=== PATIENT | female | born 1985 | race African-American/Black ===

== ENCOUNTER 2018-05-21 15:55 | Emergency (ER) | payer OTHER ==
[2018-05-21 16:14] VITALS: TEMP 98.6; BMI 32.1
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
[2018-05-21] MEDS ORDERED: ACETAMINOPHEN 325 MG TABLET (FP) ONE (17:24)
[2018-05-21] MEDS ORDERED: ACETAMINOPHEN 325 MG TABLET (FP) PO ONE (17:28)
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
[2018-05-21 18:33] VITALS: BP 132/79; PULSE 94
== END 2018-05-21 19:35 | disposition left against medical advice (07) ==
LOC: JERFT 15:55 → JER 15:55
DX: O26.893 Other specified pregnancy related conditions, third trimester (principal); S29.8XXA Other specified injuries of thorax, initial encounter; M94.0 Chondrocostal junction syndrome [Tietze]; Y04.2XXA Assault by strike against or bumped into by another person, initial encounter; Y93.89 Activity, other specified; Y92.128 Other place in nursing home as the place of occurrence of the external cause; Y99.0 Civilian activity done for income or pay; Y07.9 Unspecified perpetrator of maltreatment and neglect; Z3A.37 37 weeks gestation of pregnancy
CPT/HCPCS: 99281-25

== ENCOUNTER 2018-06-16 21:33 | Inpatient (IN) | payer OTHER ==
[2018-06-16] MEDS ORDERED: BUTORPHANOL TARTRATE 1 MG/ML VIAL IVPB ONE (22:23)
[2018-06-16] MEDS ORDERED: PROMETHAZINE HCL 25 MG/1 ML VIAL IVPUSH ONE (22:23)
[2018-06-16] MEDS ORDERED: DINOPROSTONE 10 MG VAGINAL SUPPOSITORY VG ONE (22:26)
[2018-06-16] MEDS ORDERED: ELECTROLYTE-148 SOLN 1,000 ML IV SCH (22:30)
[2018-06-16 23:18] LABS: BASO % 0.4 % (0-2.0); EOS % 1.8 % (0-4.5); HEMATOCRIT 38.3 % (32.4-45.2); HEMOGLOBIN 12.6 GM/dL (10.7-15.3); LYMPH % 25.3 % (8-40); MCH 28.5 pg (25.7-33.7); MCHC 33.1 g/dl (32.0-36.0); MEAN CELL VOLUME 86.1 fl (80-96); MEAN PLT VOLUME 10.7 fl (7.5-11.1); MONO % 11.2 % (3.8-10.2); NEUT % 61.3 % (42.8-82.8); PLATELET COUNT 230 K/MM3 (134-434); RBC 4.44 M/mm3 (3.60-5.2); RDW 16.3 % (11.6-15.6); WHITE BLOOD COUNT 8.7 K/mm3 (4.0-10.0)
[2018-06-16 23:31] LABS: INR 0.93 (0.83-1.09)
[2018-06-16 23:38] LABS: ANION GAP 9 MMOL/L (8-16); BLOOD UREA NITROGEN 10 mg/dL (7-18); CALCIUM 8.6 mg/dL (8.5-10.1); CHLORIDE 106 mmol/L (98-107); CO2 22 mmol/L (21-32); CREATININE 0.5 mg/dL (0.55-1.3); GLUCOSE,RANDOM 106 mg/dL (74-106); POTASSIUM 4.1 mmol/L (3.5-5.1); SODIUM 136 mmol/L (136-145)
[2018-06-16 23:39] VITALS: BMI 32.7
[2018-06-17] MEDS ORDERED: PROMETHAZINE HCL 25 MG/1 ML VIAL ONE (02:49)
[2018-06-17] MEDS ORDERED: BUTORPHANOL TARTRATE 1 MG/ML VIAL ONE ×2 (02:49)
[2018-06-17] MEDS ORDERED: FENTANYL/BUPIVACAINE/NS/PF - PCEA - 50 ML DISP.SYRIN EP ONE (05:05)
[2018-06-17] MEDS ORDERED: OXYTOCIN 20 UNITS in 0.9% NS 20 UNIT/1,000 ML INFUS.BAG IV ONE (05:23)
[2018-06-17] MEDS ORDERED: NALOXONE HCL 0.4 MG/ML VIAL IVPUSH PRN (06:02)
[2018-06-17] MEDS ORDERED: FENTANYL/BUPIVACAINE/NS/PF - PCEA - 50 ML DISP.SYRIN EP SCH (06:15)
--- NOTE | 2018-06-17 07:46 | HP ---
Past Medical History - Admission Chief Complaint: Here for labor induction History of Present Illness: 33 y/o with SIUP at 41.4 weeks, labor induction for late term. complicated by AMA otherwise uncomplicated . GBS negative. Pt admitted overnight last night, received cervidil at 10pm, is now s/p SROM and epidural. FHTs were category 2 with recurrent variables after epidural, now improved. History Source: Patient, Medical Record - Past Medical History Cardiovascular: Yes: HTN (h/o HTN, no meds throughout ) Pulmonary: No: COPD Gastrointestinal: No: GERD Renal/: No: UTI ...: 6 ...Para: 1 ...Term: 1 ...: 0 ...Spon : 1 ...Induced : 3 ...Multiple Gestation: 0 ...LMP: 08/30/17 ... Weeks Gestation by Dates: 41.3 ...EDC by Dates: 06/06/18 ...EDC by Sono: 06/06/18 Heme/Onc: No: Anemia Infectious Disease: No: HIV, MRSA, STD's Psych: No: Anxiety, Bipolar, Depression - Past Surgical History Past Surgical History: Yes: None Hx Myomectomy: No Hx Transabdominal Cerclage: No - Smoking History Smoking history: Never smoked Have you smoked in the past 12 months: No - Alcohol/Substance Use Hx Alcohol Use: No - Social History ADL: Independent History of Recent Travel: No Home Medications - Allergies Allergies/Adverse Reactions: Allergies Allergy/AdvReac Type Severity Reaction Status Date / Time No Known Allergies Allergy Verified 06/17/18 00:46 - Home Medications Home Medications: Ambulatory Orders Vitamins (Sjr) - 1 tab PO DAILY 03/23/18 Spirometers and Accessories [Mistassist] 1 each Q2H #1 each 05/21/18 Review of Systems - Review of Systems Constitutional: reports: No Symptoms Eyes: reports: No Symptoms HENT: reports: No Symptoms Neck: reports: No Symptoms Cardiovascular: reports: No Symptoms Respiratory: reports: No Symptoms Gastrointestinal: reports: No Symptoms Genitourinary: reports: No Symptoms Breasts: reports: No Symptoms Reported Musculoskeletal: reports: No Symptoms Integumentary: reports: No Symptoms Neurological: reports: No Symptoms Endocrine: reports: No Symptoms Hematology/Lymphatic: reports: No Symptoms Physical Exam - Maternity Vital Signs: Vital Signs Temperature 98.6 F 06/17/18 03:00 Pulse Rate 80 06/17/18 07:30 Respiratory Rate 18 06/17/18 07:30 Blood Pressure 121/67 06/17/18 07:30 O2 Sat by Pulse Oximetry (%) 98 06/17/18 07:30 Constitutional: Yes: Well Nourished, No Distress Eyes: Yes: Conjunctiva Clear, EOM Intact HENT: Yes: Atraumatic, Normocephalic Neck: Yes: Supple, Trachea Midline Cardiovascular: Yes: Regular Rate and Rhythm Lungs: Clear to auscultation - Abdominal Exam/OB Fundal Height: 40 Number of Fetuses: Single Presentation: Vertex Contractions: Yes Regularity: Regular Heart Rate (range): 130 Category: II Accelerations: Uniform Decelerations: Variable (nonrecurrent variable decelerations) - Vaginal Exam/OB Vaginal Bleediing: No Dilatation (cm): 6.7 Effacement (%): 100 Amniotic Membrane Status: Ruptured (exam per nursing staff) - Labs Lab Results: CBC, BMP 06/16/18 22:30 06/16/18 22:30 Hemorrhage Risk Assessment - Risk Factors Medium Risk Factors: Yes: None High Risk Factors: Yes: None Risk Score: 1 Risk Level: Medium Risk Problem List - Problems (1) Post-dates Code(s): O48.0 - POST-TERM (2) Advanced maternal age (AMA) in Code(s): [id number] - Assessment/Plan 33 y/o with SIUP at 41.4 weeks, IOL for post dates pt now 6-7cm dilated and head at 0 station cervidil removed continue with epidural infusion gbs negative anticipate
[2018-06-17] MEDS ORDERED: LIDO 2%/EPI 1:200000 PRESRVFRE (20 ML SDVIAL) ONE (08:29)
[2018-06-17] MEDS ORDERED: [UNRECOGNIZED DRUG - OTHER] MC SCH (08:30)
[2018-06-17] MEDS ORDERED: ONDANSETRON 4 MG/2 ML VIAL ONE (08:34)
[2018-06-17] MEDS ORDERED: TUBERCULIN PPD 5 TU/0.1ML SYRINGE (IN PATIENT USE ONLY) ID ONE (10:00)
--- NOTE | 2018-06-17 10:01 | PN ---
Delivery - Delivery Vaginal Delivery: No Problems Section: Primary Type of Anesthesia: Epidural Episiotomy/Laceration: None EBL (cc): 250 Delivery, Single - Stages of Labor Date of Delivery: 06/17/18 Time of Delivery: 09:45 Date Placenta Delivered: 06/17/18 Time Placenta Delivered: 09:48 Placenta: Yes: Spontaneous - Condition of Family Mediator/Log Truck Driver Present: Yes Name: Srini Campos Infant Gender: Female Position: Right, OA - 1 Minute Total Score: 9 5 Minutes Total Score: 9 - [place] Feeding Plan Initial Plan: Elected not to breastfeed exclusively throughout hospitalization Remarks - Remarks Remarks: Uncomplicated from KENYA position across in tact perineum anterior (right) shoudler delivered with ease along with remainder of cord clamped and cut, baby assessed by neonatology staff who was present for the entire delivery, apgars 9/9 placenta delivered in tact, 3VC noted sponge count correct mom stable baby to well baby nursery
[2018-06-17] MEDS ORDERED: BENZOCAINE 28 GM HEMORRHOIDAL OINTMENT TP PRN (10:03)
[2018-06-17] MEDS ORDERED: METHYLERGONOVINE MALEATE 0.2 MG/1 ML AMP IM PRN (10:03)
[2018-06-17] MEDS ORDERED: BENZOCAINE 20% 57 GM BOTTLE TP PRN (10:03)
[2018-06-17] MEDS ORDERED: WITCH HAZEL 50% (TUCKS) 40 PAD/JAR PAD TP PRN (10:03)
[2018-06-17] MEDS ORDERED: BISACODYL 10 MG SUPP.RECT RC PRN (10:03)
[2018-06-17] MEDS: PRENATAL VITAMINS W/ FOLIC ACID TABLET (FP) PO SCH (13:07)
[2018-06-17] MEDS: FERROUS SO4 325 MG TABLET (FP) PO SCH ×2 (13:17→17:00)
[2018-06-17] MEDS: IBUPROFEN 600 MG TABLET (FP) PO PRN (17:00)
[2018-06-17] MEDS: OXYTOCIN 20 UNITS in 0.9% NS 20 UNIT/1,000 ML INFUS.BAG IV SCH (18:05)
[2018-06-18 06:09] LABS: HBsAG SCREEN Negative (Negative)
[2018-06-18] MEDS: ACETAMINOPHEN 325 MG TABLET (FP) PO PRN ×2 (06:39→21:45)
[2018-06-18] MEDS: IBUPROFEN 600 MG TABLET (FP) PO PRN ×2 (06:39→21:44)
[2018-06-18 08:07] LABS: RUBELLA IgG ANTIBODY 2.36 index (Immune >0.99)
[2018-06-18] MEDS: FERROUS SO4 325 MG TABLET (FP) PO SCH ×3 (08:16→17:00)
[2018-06-18 08:21] LABS: BASO % 0.6 % (0-2.0); EOS % 1.4 % (0-4.5); HEMATOCRIT 34.7 % (32.4-45.2); HEMOGLOBIN 11.3 GM/dL (10.7-15.3); LYMPH % 23.7 % (8-40); MCH 28.3 pg (25.7-33.7); MCHC 32.5 g/dl (32.0-36.0); MEAN PLT VOLUME 10.4 fl (7.5-11.1); MONO % 8.2 % (3.8-10.2); NEUT % 66.1 % (42.8-82.8); PLATELET COUNT 183 K/MM3 (134-434); RBC 3.99 M/mm3 (3.60-5.2); RDW 16.6 % (11.6-15.6); WHITE BLOOD COUNT 9.2 K/mm3 (4.0-10.0)
[2018-06-18] MEDS ORDERED: DIPHTH,PERTUSS(ACELL),TET 0.5 ML DISP.SYRIN IM ONE (10:00)
[2018-06-18] MEDS: PRENATAL VITAMINS W/ FOLIC ACID TABLET (FP) PO SCH (10:21)
[2018-06-18] MEDS: OXYTOCIN 20 UNITS in 0.9% NS 20 UNIT/1,000 ML INFUS.BAG IV SCH (10:45)
--- NOTE | 2018-06-18 15:09 | PN ---
Post Progress Note - Subjective Subjective: 33 y/o post day 1 s/p normal , doing well. Pain controlled, tolerating diet, ambulating, voiding, passing flatus. Type of Delivery: Vital Signs: Vital Signs Temperature 98.0 F 06/18/18 10:00 Pulse Rate 87 06/18/18 10:00 Respiratory Rate 18 06/18/18 10:00 Blood Pressure 121/84 06/18/18 10:00 O2 Sat by Pulse Oximetry (%) 100 06/17/18 20:54 Uterus: Yes: Fundus Firm Abdomen/GI: Yes: Abdomen soft Lochia: Yes: Rubra Lochia, amount: Small Extremities: No: Edema Perineum: Yes: Intact Activity: Ambulating - Labs Labs: CBC WBC 9.2 K/mm3 (4.0-10.0) 06/18/18 07:05 RBC 3.99 M/mm3 (3.60-5.2) 06/18/18 07:05 Hgb 11.3 GM/dL (10.7-15.3) 06/18/18 07:05 Hct 34.7 % (32.4-45.2) 06/18/18 07:05 MCV 87.0 fl (80-96) 06/18/18 07:05 MCH 28.3 pg (25.7-33.7) 06/18/18 07:05 MCHC 32.5 g/dl (32.0-36.0) 06/18/18 07:05 RDW 16.6 % (11.6-15.6) H 06/18/18 07:05 Plt Count 183 K/MM3 (134-434) D 06/18/18 07:05 MPV 10.4 fl (7.5-11.1) 06/18/18 07:05 Absolute Neuts (auto) 6.1 K/mm3 (1.5-8.0) 06/18/18 07:05 Neutrophils % 66.1 % (42.8-82.8) 06/18/18 07:05 Lymphocytes % 23.7 % (8-40) 06/18/18 07:05 Monocytes % 8.2 % (3.8-10.2) 06/18/18 07:05 Eosinophils % 1.4 % (0-4.5) 06/18/18 07:05 Basophils % 0.6 % (0-2.0) 06/18/18 07:05 Nucleated RBC % 0 % (0-0) 06/18/18 07:05 Problem List - Problems (1) Post-dates Code(s): O48.0 - POST-TERM (2) Advanced maternal age (AMA) in Code(s): [id number] - (3) Vaginal delivery Code(s): O80 - ENCOUNTER FOR FULL-TERM UNCOMPLICATED DELIVERY Assessment/Plan 33 y/o PPD#1 s/p normal AFVSS Regular diet PO pain meds routine care discharge home in a.m.
--- NOTE | 2018-06-18 15:12 | DS ---
Physical Exam-AGRICULTURAL TECHNICIAN Vital Signs: Vital Signs Temperature 98.0 F 06/18/18 10:00 Pulse Rate 87 06/18/18 10:00 Respiratory Rate 18 06/18/18 10:00 Blood Pressure 121/84 06/18/18 10:00 O2 Sat by Pulse Oximetry (%) 100 06/17/18 20:54 Constitutional: Yes: Well Nourished, No Distress, Calm HENT: Yes: Atraumatic Cardiovascular: Yes: Regular Rate and Rhythm Respiratory: Yes: WNL Gastrointestinal: Yes: Normal Bowel Sounds ....Post : Yes: Uterus firm, Uterus non-tender Neurological: Yes: Alert, Oriented Psychiatric: Yes: Alert, Oriented Labs: CBC, BMP 06/18/18 07:05 06/16/18 22:30 Delivery - Delivery Vaginal Delivery: No Problems Section: Primary Type of Anesthesia: Epidural Episiotomy/Laceration: None EBL (cc): 250 Delivery, Single - Stages of Labor Date 1st Stage Initiatied: 06/17/18 Time 1st Stage Initiated: 01:00 Date 2nd Stage Initiated: 06/17/18 Time 2nd Stage Initiated: 09:30 Date of Delivery: 06/17/18 Time of Delivery: 09:45 Time Placenta Delivered: 09:48 Placenta: Yes: Spontaneous - Condition of Lumber Carrier Operator/Fruit Or Nut Crops Farm Manager Present: Yes Name: Srini Campos Infant Gender: Female Weight: 7 lb Position: Right, OA Total Hours ROM (Hrs/Mins): 4H48M - 1 Minute Total Score: 9 5 Minutes Total Score: 9 - [place] Feeding Plan Initial Plan: Elected not to breastfeed exclusively throughout hospitalization Discharge Summary Reason For Visit: INDUCTION OF LABOR Current Active Problems Advanced maternal age (AMA) in (Acute) Post-dates (Acute) Vaginal delivery (Acute) Procedures: Principal: NormaL Hospital Course: Pt admitted in 06/16 for induction, cervidil placed that evening. Pt progressed in labor throughout the night, SROM and had epidural early a.m. . Pt underwent normal on 06/17/18 of live female . Pt had uncomplicated post course and was discharged home on post day 2. Condition: Good - Instructions Diet, Activity, Other Instructions: Physical activity Resume your normal everyday activity as tolerated no heavy lifting or exercise until seen by your doctor. You may walk unlimited dari of and climb stairs. You may resume driving the car when you feel safe and comfortable behind the wheel. No sexual activity as instructed. You may shower, no soaking in tubs/ baths/pools for 6 weeks. Diet There are no dietary restrictions. Eat healthy, high-fiber foods. Drink 6 to 8 glasses of liquid each day. This will assist in keeping your bowels are regular. Pain management You may take Tylenol or Ibuprofen (for example, Motrin, Advil etc.) as needed for pain. Call MD for any of the following: Severe pain not relieved by medication Fever of 101 or higher Excessive bleeding or drainage on dressing Inability to urinate Disposition: HOME - Home Medications Comprehensive Discharge Medication List: Ambulatory Orders Vitamins (Sjr) - 1 tab PO DAILY 03/23/18 Spirometers and Accessories [Mistassist] 1 each MC Q2H #1 each 05/21/18 Ibuprofen [Motrin -] 600 mg PO QID PRN #28 tablet 06/18/18
[2018-06-18] MEDS ORDERED: SENNOSIDES/DOCUSATE COMBO (SENNA PLUS) TABLET (UD) PO PRN (22:00)
[2018-06-19] MEDS: IBUPROFEN 600 MG TABLET (FP) PO PRN (04:23)
[2018-06-19] MEDS: ACETAMINOPHEN 325 MG TABLET (FP) PO PRN (04:25)
[2018-06-19 08:54] VITALS: BP 130/82; PULSE 81; TEMP 98.9
[2018-06-19] MEDS: FERROUS SO4 325 MG TABLET (FP) PO SCH ×2 (08:56→12:00)
[2018-06-19] MEDS: PRENATAL VITAMINS W/ FOLIC ACID TABLET (FP) PO SCH (09:43)
== END 2018-06-19 13:25 | disposition home or self-care (01) | DRG 806 ==
LOC: JLDR 21:33 → J3W 06-17 11:45
PROVIDERS: ADMIT Obstetrics & Gynecology; ATTEND Obstetrics & Gynecology
PROC: 10E0XZZ Delivery of Products of Conception, External Approach (ICD-10-PCS; principal; 2018-06-17)
PROC: 3E0P7VZ Introduction of Hormone into Female Reproductive, Via Natural or Artificial Opening (ICD-10-PCS; 2018-06-17)
DX: O48.0 Post-term pregnancy (principal); O10.013 Pre-existing essential hypertension complicating pregnancy, third trimester; Z37.0 Single live birth; Z3A.41 41 weeks gestation of pregnancy
CPT/HCPCS: 36415; 59409; 80048; 85025; 85610; 85730; 86593; 86762; 86850; 86900; 86901; 87340; 90686; 90715; G0008